=== PATIENT | female | born 1990 | race Caucasian/White ===

== ENCOUNTER 2021-11-23 21:51 | Emergency (ER) | payer SELFPAY ==
[~2021-11-23] VITALS: Ht 170.2 cm; Wt 143.3 kg
[2021-11-23] MEDS ORDERED: IBUPROFEN 600 MG TAB PO STA (22:14)
[2021-11-23 23:27] VITALS: BP 125/72
== END 2021-11-23 23:23 | disposition home or self-care (01) ==
LOC: ER 22:03
DX: R50.9 Fever, unspecified (principal); J18.9 Pneumonia, unspecified organism; R05.9 Cough, unspecified; R06.02 Shortness of breath; Z20.822 Contact with and (suspected) exposure to COVID-19
CPT/HCPCS: 71045; 99283; U0002